=== PATIENT | male | born 1970 | race Caucasian/White ===

== ENCOUNTER → 2020-10-06 | Outpatient (CLI) | payer BC ==
[2020-10-06 09:47] LABS: HEMOGLOBIN 15.6 gm/dl (14.0-17.5); RED BLOOD COUNT 4.56 M/UL (4.20-5.50); WHITE BLOOD COUNT 6.6 K/UL (4.5-11.0)
[2020-10-06 10:09] LABS: BUN/CREATININE RATIO 10 (0-10)
== END ==
LOC: LAB 08:39
PROVIDERS: Nurse Practitioner Family
DX: Z00.00 Encounter for general adult medical examination without abnormal findings (principal); M25.50 Pain in unspecified joint; I10 Essential (primary) hypertension; E78.5 Hyperlipidemia, unspecified; N40.1 Benign prostatic hyperplasia with lower urinary tract symptoms; E53.8 Deficiency of other specified B group vitamins; E55.9 Vitamin D deficiency, unspecified
CPT/HCPCS: 36415; 80053; 80061; 82607; 84153; 84439; 84443; 85025

== ENCOUNTER → 2022-01-19 | Outpatient (CLI) | payer BC ==
[2022-01-19 11:06] LABS: RED BLOOD COUNT 4.48 M/UL (4.20-5.50); WHITE BLOOD COUNT 4.5 K/UL (4.5-11.0)
[2022-01-20 08:06] LABS: BUN/CREATININE RATIO 12 (0-10)
[2022-01-21 04:11] LABS: CREATININE, URINE 69.3 mg/dL (Not Estab.); MICROALB/CREAT RATIO <4 (0-29)
[2022-01-21 07:11] LABS: HEMOGLOBIN A1C 5.3 % (4.8-5.6)
[2022-01-21 11:14] LABS: CHOLESTEROL, TOTAL 220 mg/dL (100-199); HDL CHOLESTEROL 36 mg/dL (>39); T. CHOL/HDL RATIO 6.1 ratio (0.0-5.0); TRIGLYCERIDES 1021 mg/dL (0-149)
== END ==
LOC: LAB 10:31
PROVIDERS: Nurse Practitioner Family
DX: R53.83 Other fatigue (principal); I10 Essential (primary) hypertension; R73.9 Hyperglycemia, unspecified; E78.5 Hyperlipidemia, unspecified; N40.1 Benign prostatic hyperplasia with lower urinary tract symptoms; E53.8 Deficiency of other specified B group vitamins; E55.9 Vitamin D deficiency, unspecified
CPT/HCPCS: 80053; 82043; 82570; 82607; 83036; 84153; 84439; 84443; 85025